=== PATIENT | male | born 1995 | race Caucasian/White ===

== ENCOUNTER 2024-12-28 20:13 | Inpatient (IN) | payer MEDICAID, OTHER ==
[~2024-12-28] VITALS: Ht 175.3 cm; Wt 84.1 kg
[~2024-12-28 20:13] MED LIST: BENZ0.5T52 PO; RISP1TAB48 PO
[2024-12-28] MEDS: ACETAMINOPHEN 500 MG TABLET PO ONE (20:46)
[2024-12-28 20:55] LABS: BASOPHILS % (AUTO) 0.4 % (0.0-2.0); EOSINOPHILS % (AUTO) 0.8 % (1.0-6.0); LYMPHOCYTES % (AUTO) 13.9 % (22.0-44.0); MEAN CORPUSCULAR HEMOGLOBIN 30.7 pg (26.0-34.0); MEAN CORPUSCULAR HGB CONC 34.1 G/dL (31.0-37.0); MEAN CORPUSCULAR VOLUME 90 fL (80-100); MONOCYTES # (AUTO) 0.8 K/uL (0.1-1.0); MONOCYTES % (AUTO) 5.4 % (2.0-9.0); NEUTROPHILS # (AUTO) 11.3 K/uL (1.8-7.7); NEUTROPHILS % (AUTO) 79.5 % (40.0-70.0); PLATELET COUNT (AUTO) 272 K/uL (150-450); RED BLOOD CELL COUNT(AUTO) 4.55 MIL/uL (4.50-5.90); RED CELL DISTRIBUTION WIDTH 12.4 % (11.5-14.5); WHITE BLOOD COUNT (AUTO) 14.3 K/uL (4.5-11.0)
[2024-12-28 20:58] LABS: ERYTHROCYTE SEDIMENTATION RATE 4 MM/HR (0-15)
[2024-12-28] MEDS: DOCUSATE SODIUM 100 MG CAPSULE PO SCH (21:00)
[2024-12-28] MEDS ORDERED: ONDANSETRON HCL 4 MG/2 ML VIAL IVP PRN (21:00)
[2024-12-28] MEDS ORDERED: ACETAMINOPHEN 325 MG TABLET PO PRN (21:00)
[2024-12-28] MEDS: VANCOMYCIN HCL 1 GM/D5% WATER 200 ML IV ONE (21:08)
[2024-12-28] MEDS: RINGERS SOLUTION,LACTATED 500 ML IV ONE (21:18)
[2024-12-28 21:32] LABS: ANION GAP 8 mmol/L (8-16); CALCIUM, TOTAL 9.1 mg/dL (8.8-10.5); CARBON DIOXIDE 29 mmol/L (22-29); CHLORIDE 101 mmol/L (98-107); CREATININE 0.95 mg/dL (0.60-1.30); GLOMERULAR FILTR. RATE CALC > 60 mL/min (>60); GLUCOSE,RANDOM 107 mg/dL (70-110); POTASSIUM 4.1 mmol/L (3.5-5.1); SODIUM SERUM 138 mmol/L (136-145); UREA NITROGEN, BLOOD 20 mg/dL (7-18)
[2024-12-28 21:41] LABS: C-REACTIVE PROTEIN QUANT 3.37 mg/dL (0.00-0.30)
[2024-12-28 21:57] LABS: LACTIC ACID 1.1 mmol/L (0.4-2.0)
[2024-12-28 22:30] VITALS: BP 110/64; PULSE 70; RESP 18; TEMP 98.5; O2SAT 100
[2024-12-28] MEDS: PIPERACILLIN/TAZO 3.375 GM/D5W 50 ML IV SCH (22:48)
[2024-12-28] MEDS ORDERED: SODIUM CHLORIDE 0.9% 500 ML IV ONE (23:10)
[2024-12-28] MEDS ORDERED: KETOROLAC TROMETHAMINE 15 MG/ML VIAL IVP PRN (23:59)
[2024-12-29] MEDS: HEPARIN SODIUM,PORCINE 5,000 UNITS/ML VIAL SQ SCH (00:22)
[2024-12-29] MEDS: VANCOMYCIN 750 MG/WATER(PEG) 150 ML IV ONE (00:44)
[2024-12-29] MEDS: RINGERS SOLUTION,LACTATED 1,000 ML IV ONE (02:52)
[2024-12-29 05:14] VITALS: BP 104/61; PULSE 63; RESP 18; TEMP 97.9; O2SAT 100
[2024-12-29 06:52] LABS: BASOPHILS % (AUTO) 0.6 % (0.0-2.0); HEMATOCRIT 38.4 % (41-53); HEMOGLOBIN 13.5 g/dL (13.5-17.5); LYMPHOCYTES # (AUTO) 1.8 K/uL (1.0-4.8); LYMPHOCYTES % (AUTO) 24.3 % (22.0-44.0); MEAN CORPUSCULAR HEMOGLOBIN 31.3 pg (26.0-34.0); MEAN CORPUSCULAR HGB CONC 35.1 G/dL (31.0-37.0); MEAN CORPUSCULAR VOLUME 89 fL (80-100); MONOCYTES # (AUTO) 0.5 K/uL (0.1-1.0); MONOCYTES % (AUTO) 7.4 % (2.0-9.0); NEUTROPHILS # (AUTO) 4.8 K/uL (1.8-7.7); NEUTROPHILS % (AUTO) 64.7 % (40.0-70.0); PLATELET COUNT (AUTO) 250 K/uL (150-450); RED CELL DISTRIBUTION WIDTH 12.2 % (11.5-14.5); WHITE BLOOD COUNT (AUTO) 7.4 K/uL (4.5-11.0)
[2024-12-29 06:57] LABS: ANION GAP 5 mmol/L (8-16); CALCIUM, TOTAL 8.9 mg/dL (8.8-10.5); CARBON DIOXIDE 31 mmol/L (22-29); CHLORIDE 104 mmol/L (98-107); CREATININE 0.82 mg/dL (0.60-1.30); GLOMERULAR FILTR. RATE CALC > 60 mL/min (>60); GLUCOSE,RANDOM 102 mg/dL (70-110); POTASSIUM 4.2 mmol/L (3.5-5.1); SODIUM SERUM 140 mmol/L (136-145); UREA NITROGEN, BLOOD 17 mg/dL (7-18)
[2024-12-29 08:02] VITALS: BP 92/53; PULSE 69; RESP 18; TEMP 98; O2SAT 98
[2024-12-29] MEDS: VANCOMYCIN HCL 1 GM/D5% WATER 200 ML IV SCH (08:38)
[2024-12-29] MEDS: BUPRENORPHINE HCL/NALOXONE HCL 8-2 MG SUBLINGUAL TABLET SL ONE (11:20)
[2024-12-29 20:00] VITALS: BP 96/63; PULSE 70; RESP 18; TEMP 97.9; O2SAT 97
[2024-12-29] MEDS: HydrOXYzine PAMOATE 50 MG CAPSULE PO SCH (20:41)
[2024-12-29] MEDS: MIRTAZAPINE 15 MG TABLET PO SCH (20:41)
[2024-12-29] MEDS: ARIPiprazole 5 MG TABLET PO SCH (20:41)
[2024-12-30 05:22] VITALS: BP 92/50; PULSE 76; RESP 18; TEMP 98.3; O2SAT 98
[2024-12-30 07:41] LABS: ANION GAP 7 mmol/L (8-16); CALCIUM, TOTAL 8.7 mg/dL (8.8-10.5); CARBON DIOXIDE 30 mmol/L (22-29); CHLORIDE 107 mmol/L (98-107); CREATININE 0.89 mg/dL (0.60-1.30); GLOMERULAR FILTR. RATE CALC > 60 mL/min (>60); GLUCOSE,RANDOM 86 mg/dL (70-110); POTASSIUM 4.2 mmol/L (3.5-5.1); SODIUM SERUM 144 mmol/L (136-145); UREA NITROGEN, BLOOD 13 mg/dL (7-18); VANCOMYCIN,RANDOM 15.9 mcg/mL (25.0-50.0)
[2024-12-30] MEDS: BUPRENORPHINE HCL/NALOXONE HCL 8-2 MG SUBLINGUAL TABLET SL SCH (08:19)
[2024-12-30] MEDS ORDERED: CLOTRIMAZOLE 1% 10 ML SOLUTION TP SCH (16:00)
[2024-12-30] MEDS: CLOTRIMAZOLE 1% 15 GM CREAM TP SCH (17:15)
[2024-12-30 19:55] VITALS: BP 109/66; PULSE 72; RESP 18; TEMP 98; O2SAT 99
[2024-12-30] MEDS ORDERED: SODIUM CHLORIDE 0.9% 500 ML IV ONE (23:37)
[2024-12-31 05:38] VITALS: BP 108/63; PULSE 61; RESP 18; TEMP 97.8; O2SAT 99
[2024-12-31 07:17] LABS: ANION GAP 5 mmol/L (8-16); CALCIUM, TOTAL 8.8 mg/dL (8.8-10.5); CARBON DIOXIDE 30 mmol/L (22-29); CHLORIDE 105 mmol/L (98-107); CREATININE 0.86 mg/dL (0.60-1.30); GLOMERULAR FILTR. RATE CALC > 60 mL/min (>60); GLUCOSE,RANDOM 99 mg/dL (70-110); POTASSIUM 4.1 mmol/L (3.5-5.1); SODIUM SERUM 140 mmol/L (136-145); UREA NITROGEN, BLOOD 11 mg/dL (7-18)
[2024-12-31] MEDS ORDERED: RINGERS SOLUTION,LACTATED 500 ML IV PRN (12:15)
[2024-12-31] MEDS: RINGERS SOLUTION,LACTATED 500 ML IV ONE (13:59)
[2024-12-31 16:41] VITALS: BP 111/74; PULSE 68; RESP 18; TEMP 97.4; O2SAT 100
[2025-01-01 08:18] VITALS: BP 100/59; PULSE 67; RESP 18; TEMP 98.1; O2SAT 99
[2025-01-01 08:39] LABS: ANION GAP 3 mmol/L (8-16); CALCIUM, TOTAL 9.2 mg/dL (8.8-10.5); CARBON DIOXIDE 32 mmol/L (22-29); CHLORIDE 105 mmol/L (98-107); CREATININE 0.85 mg/dL (0.60-1.30); GLOMERULAR FILTR. RATE CALC > 60 mL/min (>60); GLUCOSE,RANDOM 98 mg/dL (70-110); POTASSIUM 4.1 mmol/L (3.5-5.1); SODIUM SERUM 140 mmol/L (136-145); UREA NITROGEN, BLOOD 11 mg/dL (7-18); VANCOMYCIN,RANDOM 19.7 mcg/mL (25.0-50.0)
[2025-01-01] MEDS: LIDOCAINE/PRILOCAINE 2.5-2.5% 30 GM CREAM TP PRN (08:44)
[2025-01-01] MEDS ORDERED: AMOX-457 PO (11:48)
[2025-01-01] MEDS ORDERED: LINE600T14 PO (11:48)
[2025-01-01] MEDS ORDERED: VANCOMYCIN 1.25 GM/WATER(PEG) 250 ML IV SCH (20:00)
== END 2025-01-01 19:45 | DRG 603 ==
LOC: EMS 20:13 → EDH 20:50 → 6N 22:22
PROVIDERS: ADMIT Internal Medicine; ATTEND Internal Medicine
PROC: 05HC33Z Insertion of Infusion Device into Left Basilic Vein, Percutaneous Approach (ICD-10-PCS; principal; 2025-01-01)
PROC: B54NZZA Ultrasonography of Left Upper Extremity Veins, Guidance (ICD-10-PCS; 2025-01-01)
DX: L03.116 Cellulitis of left lower limb (principal); R65.10 Systemic inflammatory response syndrome (SIRS) of non-infectious origin without acute organ dysfunction; F20.9 Schizophrenia, unspecified; E86.0 Dehydration; G47.00 Insomnia, unspecified; L97.529 Non-pressure chronic ulcer of other part of left foot with unspecified severity; I95.9 Hypotension, unspecified; S90.812A Abrasion, left foot, initial encounter; X58.XXXA Exposure to other specified factors, initial encounter; Y93.89 Activity, other specified; Y92.89 Other specified places as the place of occurrence of the external cause; Y99.8 Other external cause status
CPT/HCPCS: 36245; 36569; 76937; 80048; 80202; 83605; 83735; 84145; 85025; 85651; 86140; 87040; 96365; 97116; 97161; 99285; J1644; J2543; J3370; J7040; J7120